=== PATIENT | male | born 1940 | race Caucasian/White ===

== ENCOUNTER → 2017-04-20 | Outpatient (CLI) | payer OTHER, MEDICARE | LOC: ULTRA 09:12 | DX: I70.90 Unspecified atherosclerosis (principal); R09.89 Other specified symptoms and signs involving the circulatory and respiratory systems ==

== ENCOUNTER 2021-04-23 18:56 | Emergency (ER) | payer OTHER, MEDICARE ==
[~2021-04-23] VITALS: Ht 172.7 cm; Wt 81.7 kg
[2021-04-23 20:00] LABS: URINE BILIRUBIN NEGATIVE (Negative); URINE BLOOD NEGATIVE (Negative); URINE CLARITY CLEAR; URINE COLOR YELLOW; URINE GLUCOSE-RANDOM* NEGATIVE (Negative); URINE KETONES NEGATIVE (Negative); URINE LEUKOCYTES-REFLEX NEGATIVE (Negative); URINE NITRITE-REFLEX NEGATIVE (Negative); URINE PROTEIN (DIPSTICK) NEGATIVE (Negative); URINE UROBILINOGEN 0.2 E.U./dl (0.2-1.0)
[2021-04-23] MEDS ORDERED: KENALOG-1010 MG/ML TOP (20:58)
[2021-04-23] MEDS ORDERED: COZAAR 25 MG TA25 M1 PO (20:58)
[2021-04-23] MEDS ORDERED: LIPITOR 10 MG10 M1 PO (20:59)
[2021-04-23] MEDS ORDERED: ASA81BEC PO (20:59)
[2021-04-23 21:47] LABS: ABSOLUTE NEUTROPHILS 6.4 thou/uL (1.4-8.2); BASOPHILS 1.1 % (0.0-2.0); EOSINOPHILS 1.7 % (0.0-3.0); HEMATOCRIT 47.2 % (42.0-52.0); LYMPHOCYTES 20.2 % (24.0-44.0); MCHC 33.8 g/dL (28.0-37.0); MCV 91.7 fL (80.0-100.0); MONOCYTES 6.6 % (1.0-8.0); PLATELET COUNT 189 thou/uL (150-400); POLYS 70.4 % (36.0-66.0); RBC 5.15 mil/uL (4.50-6.00); RDW 13.5 % (10.5-14.5); WBC 9.1 thou/uL (4.0-11.0)
[2021-04-23 21:55] LABS: CALCIUM 9.1 mg/dL (8.5-10.1); CREATININE 1.1 mg/dL (0.7-1.3); POTASSIUM 4.3 mmol/L (3.5-5.1)
[2021-04-23 22:01] LABS: ALBUMIN 4.6 g/dL (3.4-5.0); TOTAL BILIRUBIN 0.8 mg/dL (0.2-1.0)
[2021-04-23] MEDS ORDERED: METHOCARBAMOL500 M2 PO (23:00)
[2021-04-23] MEDS ORDERED: LIDODERM1 EACH TOP (23:00)
[2021-04-23 23:13] VITALS: BP 133/58
== END 2021-04-23 23:14 | disposition home or self-care (01) ==
LOC: ER 18:56
PROVIDERS: Nurse Practitioner Family
DX: R10.31 Right lower quadrant pain (principal); K59.00 Constipation, unspecified; I10 Essential (primary) hypertension; E78.5 Hyperlipidemia, unspecified; Z79.899 Other long term (current) drug therapy

== ENCOUNTER → 2021-04-28 | Outpatient (CLI) | payer OTHER, MEDICARE ==
[~2021-04-28] MED LIST: ASA81BEC PO; COZAAR 25 MG TA25 M1 PO; KENALOG-1010 MG/ML TOP; LIDODERM1 EACH TOP; LIPITOR 10 MG10 M1 PO; METHOCARBAMOL500 M2 PO
== END ==
LOC: ULTRA 09:00
PROVIDERS: ATTEND Neuromusculoskeletal Medicine & OMM
DX: K76.0 Fatty (change of) liver, not elsewhere classified (principal); K82.8 Other specified diseases of gallbladder